=== PATIENT | female | born 1990 | race Caucasian/White ===

== ENCOUNTER 2018-08-08 00:06 | Emergency (ER) | payer OTHER ==
[~2018-08-08] VITALS: Ht 165.1 cm; Wt 77.3 kg
[2018-08-08] MEDS ORDERED: LISI-662 PO (01:10)
[2018-08-08 01:17] LABS: BASOPHILS % (AUTO) 0.8 % (0.0-2.0); EOSINOPHILS % (AUTO) 0.4 % (1.0-6.0); HEMATOCRIT 45.1 % (36-46); HEMOGLOBIN 15.3 g/dL (12.0-16.0); LYMPHOCYTES # (AUTO) 4.6 K/uL (1.0-4.8); LYMPHOCYTES % (AUTO) 42.3 % (22.0-44.0); MEAN CORPUSCULAR HEMOGLOBIN 31.7 pg (26.0-34.0); MEAN CORPUSCULAR VOLUME 93 fL (80-100); MONOCYTES # (AUTO) 0.3 K/uL (0.1-1.0); MONOCYTES % (AUTO) 2.9 % (2.0-9.0); NEUTROPHILS # (AUTO) 5.9 K/uL (1.8-7.7); NEUTROPHILS % (AUTO) 53.6 % (40.0-70.0); PLATELET COUNT (AUTO) 371 K/uL (150-450); RED BLOOD CELL COUNT(AUTO) 4.83 MIL/uL (4.00-5.20); RED CELL DISTRIBUTION WIDTH 12.4 % (11.5-14.5)
[2018-08-08 01:25] LABS: ANION GAP 9 mmol/L (8-16); CALCIUM, TOTAL 8.5 mg/dL (8.8-10.5); CARBON DIOXIDE 27 mmol/L (22-29); CHLORIDE 107 mmol/L (98-107); CREATININE 0.65 mg/dL (0.60-1.30); GLOMERULAR FILTR. RATE CALC > 60 mL/min (>60); GLUCOSE,RANDOM 108 mg/dL (70-110); POTASSIUM 3.5 mmol/L (3.5-5.1); SODIUM SERUM 143 mmol/L (136-145); UREA NITROGEN, BLOOD 5 mg/dL (7-18)
[2018-08-08 01:38] LABS: ALANINE AMINOTRANSFERASE 73 U/L (12-78); ALBUMIN 3.7 g/dL (3.4-5.0); ALKALINE PHOSPHATASE 79 U/L (46-116); ASPARTATE AMINOTRANSFERASE 37 U/L (15-37); BILIRUBIN,TOTAL 0.1 mg/dL (0.1-1.0); HCG,QUANTITATIVE < 1 mIU/mL (0-6); TOTAL PROTEIN, SERUM 7.8 g/dL (6.4-8.2)
[2018-08-08 02:35] LABS: AMPHET/METH SCREEN,URINE NEGATIVE (NEGATIVE); BARBITURATE SCREEN, URINE NEGATIVE (NEGATIVE); BENZODIAZEPINES SCREEN,URINE NEGATIVE (NEGATIVE); CANNABINOID SCREEN,URINE NEGATIVE (NEGATIVE); COCAINE SCREEN,URINE NEGATIVE (NEGATIVE); METHADONE SCREEN, URINE NEGATIVE (NEGATIVE); OPIATE SCREEN,URINE NEGATIVE (NEGATIVE)
[2018-08-08 02:48] LABS: PHENCYCLIDINE SCREEN,URINE NEGATIVE (NEGATIVE)
[2018-08-08 05:59] VITALS: BP 130/73
== END 2018-08-08 06:04 | disposition home or self-care (01) ==
LOC: EMS 00:06
DX: F10.129 Alcohol abuse with intoxication, unspecified (principal); I10 Essential (primary) hypertension; F17.210 Nicotine dependence, cigarettes, uncomplicated; Y90.8 Blood alcohol level of 240 mg/100 ml or more
CPT/HCPCS: 36415; 80053; 80307; 84702; 85025; 99285; G0480

== ENCOUNTER 2020-12-17 09:08 | Emergency (ER) | payer MEDICAID, OTHER ==
[~2020-12-17] VITALS: Ht 154.9 cm; Wt 77.3 kg
[~2020-12-17 09:08] MED LIST: LISI-894 PO
[2020-12-17 10:29] LABS: APPEARANCE,URINE CLEAR (CLEAR); BILIRUBIN,URINE NEGATIVE (NEGATIVE); GLUCOSE, URINE (UA) NEGATIVE (NEGATIVE); KETONES,URINE NEGATIVE (NEGATIVE); LEUKOCYTE ESTERASE ,URINE SMALL (NEGATIVE); NITRATE,URINE NEGATIVE (NEGATIVE); OCCULT BLOOD,URINE NEGATIVE (NEGATIVE); PH,URINE 7.5 (5.0-8.0); PROTEIN,URINE NEGATIVE (NEGATIVE); UROBILINOGEN,URINE 0.2 mg/dL (<=1.0)
[2020-12-17 10:39] LABS: BACTERIA,URINE None Seen /HPF (None Seen); RBC,URINE 0-2 /HPF (0-2); SQUAMOUS EPITHELIAL CELL,UR Moderate /LPF (None Seen)
[2020-12-17] MEDS ORDERED: CYCLOBENZAPRINE HCL 10 MG TABLET PO ONE (11:15)
[2020-12-17] MEDS ORDERED: KETOROLAC TROMETHAMINE 30 MG/ML VIAL IM ONE (11:15)
[2020-12-17 12:42] VITALS: BP 134/80
[2020-12-17] MEDS ORDERED: ONDANSETRON HCL 4 MG/2 ML VIAL IM ONE (13:15)
[2020-12-17] MEDS ORDERED: MORPHINE SULFATE 4 MG/ML SYRINGE IM ONE (13:15)
== END 2020-12-17 13:40 | disposition home or self-care (01) ==
LOC: EMS 09:08
DX: M51.26 Other intervertebral disc displacement, lumbar region (principal); M54.42 Lumbago with sciatica, left side; I10 Essential (primary) hypertension; F17.210 Nicotine dependence, cigarettes, uncomplicated; Z79.899 Other long term (current) drug therapy
CPT/HCPCS: 72131; 81001; 84703; 96372; 99284; J1885; J2270; J2405

== ENCOUNTER 2020-12-28 07:45 | Emergency (ER) | payer OTHER ==
[~2020-12-28] VITALS: Ht 162.6 cm; Wt 77.3 kg
[2020-12-28] MEDS ORDERED: LISI-894 PO (07:53)
[2020-12-28] MEDS ORDERED: KETOROLAC TROMETHAMINE 30 MG/ML VIAL IVP ONE (08:15)
[2020-12-28] MEDS ORDERED: MORPHINE SULFATE 4 MG/ML SYRINGE IVP ONE ×2 (08:15→09:30)
[2020-12-28] MEDS ORDERED: LIDOCAINE 5% TRANSDERMAL PATCH TD ONE (09:30)
[2020-12-28] MEDS ORDERED: ACETAMINOPHEN 500 MG TABLET PO ONE (10:15)
[2020-12-28] MEDS ORDERED: CYCLOBENZAPRINE HCL 10 MG TABLET PO ONE (10:15)
[2020-12-28 10:35] VITALS: BP 151/79
== END 2020-12-28 11:44 | disposition home or self-care (01) ==
LOC: EMS 07:49
DX: M51.26 Other intervertebral disc displacement, lumbar region (principal); I10 Essential (primary) hypertension; F17.210 Nicotine dependence, cigarettes, uncomplicated; Z88.5 Allergy status to narcotic agent; Z79.899 Other long term (current) drug therapy
CPT/HCPCS: 96374; 96375; 96376; 99284; J1885; J2270

== ENCOUNTER 2022-04-12 10:34 | Inpatient (IN) | payer MEDICAID, OTHER ==
[~2022-04-12] VITALS: Ht 162.6 cm; Wt 75.7 kg
[2022-04-12] MEDS ORDERED: HYDR-4870 PO (11:24)
[2022-04-12 11:47] LABS: BASOPHILS % (AUTO) 1.2 % (0.0-2.0); EOSINOPHILS % (AUTO) 1.5 % (1.0-6.0); HEMATOCRIT 34.9 % (36-46); HEMOGLOBIN 12.1 g/dL (12.0-16.0); LYMPHOCYTES % (AUTO) 28.9 % (22.0-44.0); MEAN CORPUSCULAR HEMOGLOBIN 35.5 pg (26.0-34.0); MEAN CORPUSCULAR HGB CONC 34.7 G/dL (31.0-37.0); MEAN CORPUSCULAR VOLUME 102 fL (80-100); MONOCYTES # (AUTO) 0.5 K/uL (0.1-1.0); MONOCYTES % (AUTO) 6.9 % (2.0-9.0); NEUTROPHILS # (AUTO) 4.2 K/uL (1.8-7.7); NEUTROPHILS % (AUTO) 61.5 % (40.0-70.0); PLATELET COUNT (AUTO) 305 K/uL (150-450); RED BLOOD CELL COUNT(AUTO) 3.41 MIL/uL (4.00-5.20); RED CELL DISTRIBUTION WIDTH 16.3 % (11.5-14.5)
[2022-04-12 11:58] LABS: ANION GAP 15 mmol/L (8-16); CALCIUM, TOTAL 8.8 mg/dL (8.8-10.5); CARBON DIOXIDE 19 mmol/L (22-29); CHLORIDE 102 mmol/L (98-107); GLOMERULAR FILTR. RATE CALC > 60 mL/min (>60); GLUCOSE,RANDOM 109 mg/dL (70-110); POTASSIUM 3.1 mmol/L (3.5-5.1); SODIUM SERUM 136 mmol/L (136-145); UREA NITROGEN, BLOOD 8 mg/dL (7-18)
[2022-04-12 12:05] LABS: ALANINE AMINOTRANSFERASE 58 U/L (12-78); ALBUMIN 3.8 g/dL (3.4-5.0); ALKALINE PHOSPHATASE 67 U/L (46-116); ASPARTATE AMINOTRANSFERASE 71 U/L (15-37); TOTAL PROTEIN, SERUM 7.3 g/dL (6.4-8.2)
[2022-04-12] MEDS ORDERED: QUEtiapine FUMARATE 100 MG TABLET PO ONE (12:15)
[2022-04-12 13:03] LABS: COVID AG,FIA SOURCE NASOPHARYNGEAL
[2022-04-12] MEDS ORDERED: THIAMINE 100 MG TABLET PO ONE (14:45)
[2022-04-12] MEDS ORDERED: POTASSIUM CHLORIDE 20 MEQ ER TABLET PO ONE (14:45)
[2022-04-12] MEDS ORDERED: LORazepam 2 MG TABLET PO ONE (14:45)
[2022-04-12] MEDS ORDERED: HALOPERIDOL LACTATE 5 MG/ML VIAL IM ONE (15:15)
[2022-04-12] MEDS ORDERED: DiphenhydrAMINE HCL 50 MG/ML VIAL IM ONE (15:15)
[2022-04-12 15:17] LABS: HCG,QUANTITATIVE < 1 mIU/mL (0-6); VALPROIC ACID 4 mcg/mL (50-100)
[2022-04-12] MEDS ORDERED: LORazepam 2 MG TABLET PO PRN (16:30)
[2022-04-12] MEDS ORDERED: HALOPERIDOL 5 MG TABLET PO PRN (16:30)
[2022-04-12] MEDS ORDERED: ChlordiazePOXIDE HCL 25 MG CAPSULE PO PRN (17:15)
[2022-04-13 00:21] LABS: AMPHET/METH SCREEN,URINE NEGATIVE (NEGATIVE); BARBITURATE SCREEN, URINE NEGATIVE (NEGATIVE); BENZODIAZEPINES SCREEN,URINE NEGATIVE (NEGATIVE); CANNABINOID SCREEN,URINE NEGATIVE (NEGATIVE); COCAINE SCREEN,URINE NEGATIVE (NEGATIVE); METHADONE SCREEN, URINE NEGATIVE (NEGATIVE); OPIATE SCREEN,URINE NEGATIVE (NEGATIVE)
[2022-04-13 00:23] LABS: PHENCYCLIDINE SCREEN,URINE NEGATIVE (NEGATIVE)
[2022-04-13] MEDS: ZOLPIDEM TARTRATE 10 MG TABLET PO PRN ×2 (00:33→20:30)
[2022-04-13 06:40] VITALS: BP 132/93
[2022-04-13] MEDS ORDERED: PNEUMOCOCCAL VACCINE POLYVALENT 0.5 ML VIAL [PPSV23] IM. ONE (06:45)
[2022-04-13 08:08] VITALS: BP 130/63
[2022-04-13] MEDS ORDERED: ONDANSETRON HCL 4 MG TABLET PO PRN (08:30)
[2022-04-13] MEDS ORDERED: DOCUSATE SODIUM 100 MG CAPSULE PO PRN (08:30)
[2022-04-13] MEDS ORDERED: GuaiFENesin/D-METHORPHAN [SUGAR-FREE] 200-20MG/10 ML SYRUP UDCUP PO PRN (08:30)
[2022-04-13] MEDS ORDERED: LOPERAMIDE HCL 2 MG CAPSULE PO PRN (08:30)
[2022-04-13] MEDS ORDERED: MAG HYDROX/AL HYDROX/SIMETH ES 30 ML SUSPENSION UDCUP PO PRN (08:30)
[2022-04-13] MEDS ORDERED: CloNIDine HCL 0.1 MG TABLET PO PRN (08:30)
[2022-04-13] MEDS ORDERED: MAGNESIUM HYDROXIDE SUSPENSION 30 ML UDCUP PO PRN (08:30)
[2022-04-13] MEDS ORDERED: NICOTINE 14 MG/24 HOUR PATCH TD PRN (08:30)
[2022-04-13] MEDS ORDERED: ALBUTEROL SULFATE HFA 90 MCG/PUFF 8 GM INHALER IH PRN (08:30)
[2022-04-13] MEDS ORDERED: ACETAMINOPHEN 325 MG TABLET PO PRN (08:30)
[2022-04-13] MEDS ORDERED: PETROLATUM,WHITE 28 GM JELLY TP PRN (08:30)
[2022-04-13] MEDS ORDERED: IBUPROFEN 400 MG TABLET PO PRN (08:30)
[2022-04-13] MEDS ORDERED: ChlordiazePOXIDE HCL 25 MG CAPSULE PO SCH (09:00)
[2022-04-13 11:29] VITALS: BP 156/105
[2022-04-13] MEDS: ChlordiazePOXIDE HCL 25 MG CAPSULE PO PRN ×2 (11:53→16:09)
[2022-04-13] MEDS: LISINOPRIL 20 MG TABLET PO SCH (12:28)
[2022-04-13] MEDS: RisperiDONE 1 MG TABLET PO SCH (16:09)
[2022-04-13 16:30] VITALS: BP 172/92
[2022-04-13 17:30] VITALS: BP 152/88
[2022-04-14 05:23] VITALS: BP 135/86
[2022-04-14] MEDS: LISINOPRIL 20 MG TABLET PO SCH (08:16)
[2022-04-14] MEDS: RisperiDONE 1 MG TABLET PO SCH ×2 (08:16→16:40)
[2022-04-14 08:36] VITALS: BP 143/89
[2022-04-14] MEDS: ChlordiazePOXIDE HCL 25 MG CAPSULE PO PRN ×3 (15:47→20:28)
[2022-04-14 16:27] VITALS: BP 138/100
[2022-04-14 18:29] VITALS: BP 124/88
[2022-04-14] MEDS: ZOLPIDEM TARTRATE 10 MG TABLET PO PRN (20:28)
[2022-04-15 05:34] VITALS: BP 145/92
[2022-04-15] MEDS: ChlordiazePOXIDE HCL 25 MG CAPSULE PO PRN (06:43)
[2022-04-15] MEDS ORDERED: ChlordiazePOXIDE HCL 10 MG CAPSULE PO PRN (07:00)
[2022-04-15] MEDS ORDERED: POTASSIUM CHLORIDE 20 MEQ ER TABLET PO ONE (08:00)
[2022-04-15] MEDS: RisperiDONE 1 MG TABLET PO SCH (08:09)
[2022-04-15] MEDS: LISINOPRIL 20 MG TABLET PO SCH (08:09)
[2022-04-15 08:17] VITALS: BP 137/101
[2022-04-15] MEDS ORDERED: ChlordiazePOXIDE HCL 10 MG CAPSULE PO SCH (09:00)
[2022-04-15] MEDS ORDERED: DISULFIRAM 250 MG TABLET PO SCH (10:45)
[2022-04-15] MEDS ORDERED: DISU250T8 PO (12:58)
[2022-04-15] MEDS ORDERED: RISP1TAB98 PO (12:58)
[2022-04-15 14:27] VITALS: BP 135/93
[2022-04-16] MEDS ORDERED: ChlordiazePOXIDE HCL 10 MG CAPSULE PO PRN (07:00)
== END 2022-04-15 15:07 | disposition home or self-care (01) | DRG 750 ==
LOC: EMS 10:36 → B3A 04-13 03:02
PROVIDERS: ADMIT Psychiatry & Neurology Child & Adolescent Psychiatry; ATTEND Psychiatry & Neurology Child & Adolescent Psychiatry
PROC: 3E0234Z Introduction of Serum, Toxoid and Vaccine into Muscle, Percutaneous Approach (ICD-10-PCS; principal; 2022-04-13)
DX: F25.0 Schizoaffective disorder, bipolar type (principal); D64.9 Anemia, unspecified; Z20.822 Contact with and (suspected) exposure to COVID-19; E87.6 Hypokalemia; F10.129 Alcohol abuse with intoxication, unspecified; F19.10 Other psychoactive substance abuse, uncomplicated; F31.9 Bipolar disorder, unspecified; I10 Essential (primary) hypertension; Y90.5 Blood alcohol level of 100-119 mg/100 ml; F17.210 Nicotine dependence, cigarettes, uncomplicated; Z23 Encounter for immunization; Z88.5 Allergy status to narcotic agent; Z79.899 Other long term (current) drug therapy; Z71.41 Alcohol abuse counseling and surveillance of alcoholic
CPT/HCPCS: 70450; 80053; 80164; 84132; 84443; 84702; 85025; 90732; 99285; G0480; J1200; J1630; J3535

== ENCOUNTER 2022-07-04 12:06 | Inpatient (IN) | payer OTHER ==
[~2022-07-04] VITALS: Ht 162.6 cm; Wt 78.9 kg
[2022-07-04] MEDS ORDERED: HYDR25TA2 PO (12:19)
[2022-07-04] MEDS ORDERED: LISI-894 PO (12:19)
[2022-07-04] MEDS ORDERED: ONDANSETRON HCL 4 MG/2 ML VIAL IVP ONE (12:45)
[2022-07-04] MEDS ORDERED: SODIUM CHLORIDE 0.9% 1,000 ML IV ONE (12:45)
[2022-07-04 12:46] LABS: BASOPHILS % (AUTO) 0.6 % (0.0-2.0); EOSINOPHILS % (AUTO) 0.2 % (1.0-6.0); HEMATOCRIT 35.6 % (36-46); LYMPHOCYTES % (AUTO) 21.8 % (22.0-44.0); MEAN CORPUSCULAR HGB CONC 33.7 G/dL (31.0-37.0); MEAN CORPUSCULAR VOLUME 95 fL (80-100); MONOCYTES # (AUTO) 0.5 K/uL (0.1-1.0); MONOCYTES % (AUTO) 11.1 % (2.0-9.0); NEUTROPHILS # (AUTO) 3.1 K/uL (1.8-7.7); NEUTROPHILS % (AUTO) 66.3 % (40.0-70.0); PLATELET COUNT (AUTO) 308 K/uL (150-450); RED BLOOD CELL COUNT(AUTO) 3.75 MIL/uL (4.00-5.20); RED CELL DISTRIBUTION WIDTH 18.4 % (11.5-14.5)
[2022-07-04 12:57] LABS: ANION GAP 13 mmol/L (8-16); CALCIUM, TOTAL 7.6 mg/dL (8.8-10.5); CARBON DIOXIDE 24 mmol/L (22-29); CHLORIDE 101 mmol/L (98-107); CREATININE 0.49 mg/dL (0.60-1.30); GLUCOSE,RANDOM 99 mg/dL (70-110); POTASSIUM 3.2 mmol/L (3.5-5.1); SODIUM SERUM 138 mmol/L (136-145); UREA NITROGEN, BLOOD 15 mg/dL (7-18)
[2022-07-04 12:58] LABS: GLOMERULAR FILTR. RATE CALC > 60 mL/min (>60)
[2022-07-04] MEDS ORDERED: LORazepam 2 MG/ML VIAL IVP ONE (13:00)
[2022-07-04 13:10] LABS: ALANINE AMINOTRANSFERASE 130 U/L (12-78); ALBUMIN 3.4 g/dL (3.4-5.0); ALKALINE PHOSPHATASE 99 U/L (46-116); ASPARTATE AMINOTRANSFERASE 114 U/L (15-37); BILIRUBIN,TOTAL 0.3 mg/dL (0.1-1.0); HCG,QUANTITATIVE < 1 mIU/mL (0-6); TOTAL PROTEIN, SERUM 6.9 g/dL (6.4-8.2)
[2022-07-04] MEDS ORDERED: MAGNESIUM SULFATE 2 GM, MVI, ADULT NO.1 WITH VIT K 10 ML, THIAMINE 100 MG, FOLIC ACID 1... IV ONE ×10 (14:00→16:15)
[2022-07-04] MEDS ORDERED: POTASSIUM CHLORIDE 20 MEQ ER TABLET PO ONE (14:00)
[2022-07-04] MEDS ORDERED: ONDANSETRON HCL 4 MG/2 ML VIAL IVP PRN (15:00)
[2022-07-04] MEDS ORDERED: MAGNESIUM HYDROXIDE SUSPENSION 30 ML UDCUP PO PRN (15:00)
[2022-07-04] MEDS ORDERED: BISACODYL 10 MG RECTAL RECTAL SUPPOSITORY PR PRN (15:00)
[2022-07-04 15:13] LABS: AMPHET/METH SCREEN,URINE NEGATIVE (NEGATIVE); BARBITURATE SCREEN, URINE NEGATIVE (NEGATIVE); BENZODIAZEPINES SCREEN,URINE POSITIVE (NEGATIVE); CANNABINOID SCREEN,URINE NEGATIVE (NEGATIVE); COCAINE SCREEN,URINE NEGATIVE (NEGATIVE); METHADONE SCREEN, URINE NEGATIVE (NEGATIVE); OPIATE SCREEN,URINE NEGATIVE (NEGATIVE); PHENCYCLIDINE SCREEN,URINE NEGATIVE (NEGATIVE)
[2022-07-04 16:07] LABS: COVID AG,FIA SOURCE NASAL SWAB
[2022-07-04] MEDS: ChlordiazePOXIDE HCL 25 MG CAPSULE PO SCH ×2 (17:10→23:19)
[2022-07-04] MEDS: HEPARIN SODIUM,PORCINE 5,000 UNITS/ML VIAL SQ SCH ×2 (17:10→23:21)
[2022-07-04 20:30] VITALS: BP 184/117
[2022-07-04] MEDS: DOCUSATE SODIUM 100 MG CAPSULE PO SCH (20:47)
[2022-07-04] MEDS ORDERED: CloNIDine HCL 0.1 MG TABLET PO PRN (21:45)
[2022-07-05] VITALS (7 sets, daily range): BP systolic 114–164; BP diastolic 79–107
[2022-07-05 06:38] LABS: EOSINOPHILS % (AUTO) 1.1 % (1.0-6.0); HEMATOCRIT 34.1 % (36-46); HEMOGLOBIN 11.5 g/dL (12.0-16.0); LYMPHOCYTES # (AUTO) 2.3 K/uL (1.0-4.8); LYMPHOCYTES % (AUTO) 36.3 % (22.0-44.0); MEAN CORPUSCULAR HEMOGLOBIN 32.1 pg (26.0-34.0); MEAN CORPUSCULAR HGB CONC 33.7 G/dL (31.0-37.0); MEAN CORPUSCULAR VOLUME 95 fL (80-100); MONOCYTES # (AUTO) 0.7 K/uL (0.1-1.0); NEUTROPHILS # (AUTO) 3.2 K/uL (1.8-7.7); NEUTROPHILS % (AUTO) 50.6 % (40.0-70.0); PLATELET COUNT (AUTO) 280 K/uL (150-450); RED BLOOD CELL COUNT(AUTO) 3.58 MIL/uL (4.00-5.20); RED CELL DISTRIBUTION WIDTH 18.8 % (11.5-14.5)
[2022-07-05 07:10] LABS: ANION GAP 8 mmol/L (8-16); CALCIUM, TOTAL 7.4 mg/dL (8.8-10.5); CARBON DIOXIDE 27 mmol/L (22-29); CHLORIDE 102 mmol/L (98-107); CREATININE 0.58 mg/dL (0.60-1.30); GLUCOSE,RANDOM 92 mg/dL (70-110); POTASSIUM 3.5 mmol/L (3.5-5.1); SODIUM SERUM 137 mmol/L (136-145); UREA NITROGEN, BLOOD 6 mg/dL (7-18)
[2022-07-05 07:12] LABS: GLOMERULAR FILTR. RATE CALC > 60 mL/min (>60)
[2022-07-05] MEDS: PANTOPRAZOLE SODIUM 40 MG DR TABLET PO SCH (08:22)
[2022-07-05] MEDS: LISINOPRIL 20 MG TABLET PO SCH (08:22)
[2022-07-05] MEDS: DOCUSATE SODIUM 100 MG CAPSULE PO SCH ×2 (08:23→21:15)
[2022-07-05] MEDS: HEPARIN SODIUM,PORCINE 5,000 UNITS/ML VIAL SQ SCH ×3 (08:23→23:05)
[2022-07-05] MEDS: HYDROCHLOROTHIAZIDE 25 MG TABLET PO SCH (08:23)
[2022-07-05] MEDS: ChlordiazePOXIDE HCL 25 MG CAPSULE PO SCH ×2 (08:24→15:36)
[2022-07-05] MEDS ORDERED: MAGNESIUM SULFATE 2 GM, MVI, ADULT NO.1 WITH VIT K 10 ML, THIAMINE 100 MG, FOLIC ACID 1... IV ONE ×5 (11:30)
[2022-07-05] MEDS: ACETAMINOPHEN 325 MG TABLET PO PRN (15:36)
[2022-07-05] MEDS ORDERED: RisperiDONE 1 MG TABLET PO SCH (21:00)
[2022-07-05] MEDS: ZOLPIDEM TARTRATE 5 MG TABLET PO PRN (21:15)
[2022-07-05] MEDS: ChlordiazePOXIDE HCL 25 MG CAPSULE PO PRN ×2 (21:16→23:04)
[2022-07-06] VITALS (10 sets, daily range): BP systolic 126–161; BP diastolic 61–112
[2022-07-06] MEDS: ChlordiazePOXIDE HCL 25 MG CAPSULE PO PRN ×4 (00:52→23:42)
[2022-07-06 07:11] LABS: BASOPHILS % (AUTO) 0.8 % (0.0-2.0); EOSINOPHILS % (AUTO) 1.2 % (1.0-6.0); HEMATOCRIT 35.3 % (36-46); LYMPHOCYTES # (AUTO) 2.4 K/uL (1.0-4.8); LYMPHOCYTES % (AUTO) 31.9 % (22.0-44.0); MEAN CORPUSCULAR HEMOGLOBIN 32.1 pg (26.0-34.0); MEAN CORPUSCULAR HGB CONC 33.8 G/dL (31.0-37.0); MEAN CORPUSCULAR VOLUME 95 fL (80-100); MONOCYTES # (AUTO) 0.6 K/uL (0.1-1.0); MONOCYTES % (AUTO) 8.5 % (2.0-9.0); NEUTROPHILS # (AUTO) 4.4 K/uL (1.8-7.7); NEUTROPHILS % (AUTO) 57.6 % (40.0-70.0); PLATELET COUNT (AUTO) 258 K/uL (150-450); RED BLOOD CELL COUNT(AUTO) 3.73 MIL/uL (4.00-5.20); RED CELL DISTRIBUTION WIDTH 18.5 % (11.5-14.5)
[2022-07-06 07:37] LABS: ANION GAP 11 mmol/L (8-16); CALCIUM, TOTAL 8.5 mg/dL (8.8-10.5); CARBON DIOXIDE 25 mmol/L (22-29); CHLORIDE 101 mmol/L (98-107); CREATININE 0.54 mg/dL (0.60-1.30); GLOMERULAR FILTR. RATE CALC > 60 mL/min (>60); GLUCOSE,RANDOM 91 mg/dL (70-110); POTASSIUM 3.2 mmol/L (3.5-5.1); SODIUM SERUM 137 mmol/L (136-145); UREA NITROGEN, BLOOD 10 mg/dL (7-18)
[2022-07-06] MEDS: PANTOPRAZOLE SODIUM 40 MG DR TABLET PO SCH (08:29)
[2022-07-06] MEDS: LISINOPRIL 20 MG TABLET PO SCH (08:29)
[2022-07-06] MEDS: DOCUSATE SODIUM 100 MG CAPSULE PO SCH ×2 (08:30→20:42)
[2022-07-06] MEDS: SERTRALINE HCL 50 MG TABLET PO SCH (08:30)
[2022-07-06] MEDS: HYDROCHLOROTHIAZIDE 25 MG TABLET PO SCH (08:30)
[2022-07-06] MEDS: ChlordiazePOXIDE HCL 25 MG CAPSULE PO SCH ×4 (08:30→20:43)
[2022-07-06] MEDS: HEPARIN SODIUM,PORCINE 5,000 UNITS/ML VIAL SQ SCH ×3 (08:39→23:42)
[2022-07-06] MEDS ORDERED: POTASSIUM CHLORIDE 20 MEQ ER TABLET PO PRN (18:45)
[2022-07-06] MEDS ORDERED: POTASSIUM CHL 10 MEQ/WATER 50 ML IV PRN ×2 (18:45)
[2022-07-06] MEDS ORDERED: POTASSIUM CHLORIDE 10 MEQ ER TABLET PO PRN (18:45)
[2022-07-06] MEDS: ZOLPIDEM TARTRATE 5 MG TABLET PO PRN (20:43)
[2022-07-06] MEDS: FOLIC ACID 1 MG TABLET PO SCH (20:46)
[2022-07-07] VITALS (7 sets, daily range): BP systolic 123–156; BP diastolic 93–108
[2022-07-07] MEDS: ChlordiazePOXIDE HCL 25 MG CAPSULE PO PRN ×2 (03:47→23:26)
[2022-07-07 06:48] LABS: BASOPHILS % (AUTO) 0.9 % (0.0-2.0); HEMATOCRIT 34.2 % (36-46); HEMOGLOBIN 11.5 g/dL (12.0-16.0); LYMPHOCYTES # (AUTO) 2.5 K/uL (1.0-4.8); LYMPHOCYTES % (AUTO) 25.9 % (22.0-44.0); MEAN CORPUSCULAR HGB CONC 33.8 G/dL (31.0-37.0); MEAN CORPUSCULAR VOLUME 95 fL (80-100); MONOCYTES # (AUTO) 0.5 K/uL (0.1-1.0); MONOCYTES % (AUTO) 5.5 % (2.0-9.0); NEUTROPHILS # (AUTO) 6.3 K/uL (1.8-7.7); NEUTROPHILS % (AUTO) 66.7 % (40.0-70.0); PLATELET COUNT (AUTO) 262 K/uL (150-450); RED CELL DISTRIBUTION WIDTH 18.5 % (11.5-14.5)
[2022-07-07] MEDS: ChlordiazePOXIDE HCL 25 MG CAPSULE PO SCH ×4 (06:48→20:14)
[2022-07-07 07:52] LABS: ANION GAP 8 mmol/L (8-16); CARBON DIOXIDE 26 mmol/L (22-29); CHLORIDE 101 mmol/L (98-107); CREATININE 0.57 mg/dL (0.60-1.30); GLUCOSE,RANDOM 89 mg/dL (70-110); POTASSIUM 3.7 mmol/L (3.5-5.1); SODIUM SERUM 135 mmol/L (136-145); UREA NITROGEN, BLOOD 19 mg/dL (7-18)
[2022-07-07 07:53] LABS: GLOMERULAR FILTR. RATE CALC > 60 mL/min (>60)
[2022-07-07] MEDS: LISINOPRIL 20 MG TABLET PO SCH (08:43)
[2022-07-07] MEDS: THIAMINE 100 MG TABLET PO SCH (08:43)
[2022-07-07] MEDS: HEPARIN SODIUM,PORCINE 5,000 UNITS/ML VIAL SQ SCH ×3 (08:43→23:30)
[2022-07-07] MEDS: MECLIZINE HCL 25 MG TABLET PO PRN (08:44)
[2022-07-07] MEDS: DOCUSATE SODIUM 100 MG CAPSULE PO SCH ×2 (08:44→20:15)
[2022-07-07] MEDS: PANTOPRAZOLE SODIUM 40 MG DR TABLET PO SCH (08:44)
[2022-07-07] MEDS: SERTRALINE HCL 50 MG TABLET PO SCH (08:44)
[2022-07-07] MEDS: HYDROCHLOROTHIAZIDE 25 MG TABLET PO SCH (08:44)
[2022-07-07] MEDS: FOLIC ACID 1 MG TABLET PO SCH ×2 (08:44→22:34)
[2022-07-07] MEDS ORDERED: PROP20TA96 PO (12:41)
[2022-07-07] MEDS ORDERED: CETI10TA58 PO (12:41)
[2022-07-07] MEDS: LORazepam 2 MG/ML VIAL IVP PRN (20:15)
[2022-07-08 00:24] VITALS: BP 134/91
[2022-07-08] MEDS: ACETAMINOPHEN 325 MG TABLET PO PRN ×2 (03:30→20:07)
[2022-07-08] MEDS: ChlordiazePOXIDE HCL 25 MG CAPSULE PO PRN (03:31)
[2022-07-08 04:31] VITALS: BP 116/83
[2022-07-08] MEDS ORDERED: ChlordiazePOXIDE HCL 10 MG CAPSULE PO PRN (07:00)
[2022-07-08 07:18] VITALS: BP 121/85
[2022-07-08] MEDS: HYDROCHLOROTHIAZIDE 25 MG TABLET PO SCH (10:23)
[2022-07-08] MEDS: LISINOPRIL 20 MG TABLET PO SCH (10:23)
[2022-07-08] MEDS: ChlordiazePOXIDE HCL 10 MG CAPSULE PO SCH ×4 (10:24→20:05)
[2022-07-08] MEDS: THIAMINE 100 MG TABLET PO SCH (10:24)
[2022-07-08] MEDS: FOLIC ACID 1 MG TABLET PO SCH ×2 (10:24→20:06)
[2022-07-08] MEDS: SERTRALINE HCL 50 MG TABLET PO SCH (10:24)
[2022-07-08] MEDS: HEPARIN SODIUM,PORCINE 5,000 UNITS/ML VIAL SQ SCH ×2 (10:25→16:10)
[2022-07-08] MEDS: DOCUSATE SODIUM 100 MG CAPSULE PO SCH ×2 (10:25→20:06)
[2022-07-08] MEDS: PANTOPRAZOLE SODIUM 40 MG DR TABLET PO SCH (10:25)
[2022-07-08] MEDS: LORazepam 2 MG/ML VIAL IVP PRN ×3 (10:25→23:55)
[2022-07-08 11:00] VITALS: BP 125/86
[2022-07-08 15:30] VITALS: BP 114/82
[2022-07-08 19:34] VITALS: BP 125/90
[2022-07-08] MEDS: ZOLPIDEM TARTRATE 5 MG TABLET PO PRN (20:06)
[2022-07-08] MEDS: MECLIZINE HCL 25 MG TABLET PO PRN (22:20)
[2022-07-09 00:07] VITALS: BP 116/70
[2022-07-09 04:33] VITALS: BP 118/76
[2022-07-09] MEDS ORDERED: ChlordiazePOXIDE HCL 10 MG CAPSULE PO PRN (07:00)
[2022-07-09 07:22] VITALS: BP 118/71
[2022-07-09 07:31] VITALS: BP 110/74
[2022-07-09] MEDS: HEPARIN SODIUM,PORCINE 5,000 UNITS/ML VIAL SQ SCH ×3 (08:00→16:00)
[2022-07-09] MEDS: THIAMINE 100 MG TABLET PO SCH (08:37)
[2022-07-09] MEDS: LISINOPRIL 20 MG TABLET PO SCH (08:37)
[2022-07-09] MEDS: HYDROCHLOROTHIAZIDE 25 MG TABLET PO SCH (08:37)
[2022-07-09] MEDS: PANTOPRAZOLE SODIUM 40 MG DR TABLET PO SCH (08:37)
[2022-07-09] MEDS: FOLIC ACID 1 MG TABLET PO SCH (08:37)
[2022-07-09] MEDS: SERTRALINE HCL 50 MG TABLET PO SCH (08:37)
[2022-07-09] MEDS: LORazepam 2 MG/ML VIAL IVP PRN (08:37)
[2022-07-09] MEDS: DOCUSATE SODIUM 100 MG CAPSULE PO SCH (08:45)
[2022-07-09 11:14] VITALS: BP 98/61
[2022-07-09] MEDS ORDERED: PROP20TA96 PO (12:04)
[2022-07-09] MEDS ORDERED: SERT-439 PO (12:04)
[2022-07-09] MEDS ORDERED: CHLO10CA7 PO (12:04)
[2022-07-09] MEDS ORDERED: HYDR25TA2 PO (12:04)
[2022-07-09] MEDS ORDERED: LISI-894 PO (12:04)
[2022-07-09 15:11] VITALS: BP 101/65
== END 2022-07-09 17:10 | disposition home or self-care (01) | DRG 199 ==
LOC: EMS 12:06 → 5N 15:45
PROVIDERS: ADMIT Internal Medicine; ATTEND Internal Medicine
DX: I10 Essential (primary) hypertension (principal); F33.2 Major depressive disorder, recurrent severe without psychotic features; R65.10 Systemic inflammatory response syndrome (SIRS) of non-infectious origin without acute organ dysfunction; F10.239 Alcohol dependence with withdrawal, unspecified; E11.9 Type 2 diabetes mellitus without complications; E87.6 Hypokalemia; Z20.822 Contact with and (suspected) exposure to COVID-19; F17.210 Nicotine dependence, cigarettes, uncomplicated; Y90.1 Blood alcohol level of 20-39 mg/100 ml; F41.9 Anxiety disorder, unspecified; R00.0 Tachycardia, unspecified; R11.2 Nausea with vomiting, unspecified; Z79.899 Other long term (current) drug therapy; Z88.5 Allergy status to narcotic agent; Z71.6 Tobacco abuse counseling
CPT/HCPCS: 80048; 80053; 84132; 84702; 85025; 87081; 99285; G0480; J1644; J2060; J2405; J3411; J3475; J3490; J7030

== ENCOUNTER 2022-09-04 18:57 | Emergency (ER) | payer OTHER ==
[~2022-09-04] VITALS: Ht 162.6 cm; Wt 81.8 kg
[~2022-09-04 18:57] MED LIST changes: +CETI10TA58 PO; +CHLO10CA7 PO; +HYDR25TA2 PO; +PROP20TA96 PO; +SERT-439 PO
[2022-09-04] MEDS ORDERED: LORazepam 2 MG/ML VIAL IVP ONE (19:30)
[2022-09-04] MEDS ORDERED: SODIUM CHLORIDE 0.9% 1,000 ML IV ONE (19:30)
[2022-09-04] MEDS ORDERED: ONDANSETRON HCL 4 MG/2 ML VIAL IVP ONE (19:30)
[2022-09-04 19:37] LABS: EOSINOPHILS % (AUTO) 0.3 % (1.0-6.0); HEMOGLOBIN 13.1 g/dL (12.0-16.0); LYMPHOCYTES # (AUTO) 3.2 K/uL (1.0-4.8); LYMPHOCYTES % (AUTO) 48.8 % (22.0-44.0); MEAN CORPUSCULAR HGB CONC 33.7 G/dL (31.0-37.0); MEAN CORPUSCULAR VOLUME 92 fL (80-100); MONOCYTES # (AUTO) 0.3 K/uL (0.1-1.0); MONOCYTES % (AUTO) 4.7 % (2.0-9.0); NEUTROPHILS % (AUTO) 45.2 % (40.0-70.0); PLATELET COUNT (AUTO) 309 K/uL (150-450); RED BLOOD CELL COUNT(AUTO) 4.23 MIL/uL (4.00-5.20); RED CELL DISTRIBUTION WIDTH 14.6 % (11.5-14.5)
[2022-09-04 19:41] LABS: GLUCOMETER DEV NAME(LOC) ERT.5; GLUCOSE,POINT OF CARE 131 MG/DL (70-110)
[2022-09-04 19:47] LABS: ANION GAP 8 mmol/L (8-16); CALCIUM, TOTAL 8.3 mg/dL (8.8-10.5); CARBON DIOXIDE 27 mmol/L (22-29); CHLORIDE 105 mmol/L (98-107); CREATININE 0.88 mg/dL (0.60-1.30); GLUCOSE,RANDOM 128 mg/dL (70-110); POTASSIUM 3.9 mmol/L (3.5-5.1); SODIUM SERUM 140 mmol/L (136-145); UREA NITROGEN, BLOOD 19 mg/dL (7-18)
[2022-09-04 19:48] LABS: GLOMERULAR FILTR. RATE CALC > 60 mL/min (>60)
[2022-09-04 19:58] LABS: ALANINE AMINOTRANSFERASE 26 U/L (12-78); ALBUMIN 3.9 g/dL (3.4-5.0); ALKALINE PHOSPHATASE 62 U/L (46-116); ASPARTATE AMINOTRANSFERASE 23 U/L (15-37); BILIRUBIN,TOTAL 0.2 mg/dL (0.1-1.0); HCG,QUANTITATIVE < 1 mIU/mL (0-6); LIPASE 95 U/L (73-393); TOTAL PROTEIN, SERUM 7.6 g/dL (6.4-8.2)
[2022-09-04 21:00] LABS: APPEARANCE,URINE CLEAR (CLEAR); BILIRUBIN,URINE NEGATIVE (NEGATIVE); GLUCOSE, URINE (UA) NEGATIVE (NEGATIVE); KETONES,URINE TRACE mg/dL (NEGATIVE); LEUKOCYTE ESTERASE ,URINE NEGATIVE (NEGATIVE); NITRATE,URINE NEGATIVE (NEGATIVE); OCCULT BLOOD,URINE NEGATIVE (NEGATIVE); PH,URINE 5.5 (5.0-8.0); PROTEIN,URINE NEGATIVE (NEGATIVE); SPECIFIC GRAVITIY, URINE 1.024 (1.003-1.030); UROBILINOGEN,URINE <=1.0 mg/dL (<=1.0)
[2022-09-04 21:05] LABS: AMPHET/METH SCREEN,URINE NEGATIVE (NEGATIVE); BARBITURATE SCREEN, URINE NEGATIVE (NEGATIVE); BENZODIAZEPINES SCREEN,URINE NEGATIVE (NEGATIVE); CANNABINOID SCREEN,URINE NEGATIVE (NEGATIVE); COCAINE SCREEN,URINE NEGATIVE (NEGATIVE); METHADONE SCREEN, URINE NEGATIVE (NEGATIVE); OPIATE SCREEN,URINE NEGATIVE (NEGATIVE)
[2022-09-04 21:08] LABS: PHENCYCLIDINE SCREEN,URINE NEGATIVE (NEGATIVE)
[2022-09-04 21:56] VITALS: BP 106/42
== END 2022-09-04 22:30 | disposition home or self-care (01) ==
LOC: EMS 18:57
DX: F25.0 Schizoaffective disorder, bipolar type (principal); F10.20 Alcohol dependence, uncomplicated; F41.9 Anxiety disorder, unspecified; R11.0 Nausea; I10 Essential (primary) hypertension; F17.210 Nicotine dependence, cigarettes, uncomplicated; Z79.899 Other long term (current) drug therapy; Y90.6 Blood alcohol level of 120-199 mg/100 ml
CPT/HCPCS: 99285; 96374; 96361; 96375; 80053; 81003; 82962; 83690; 83735; 84702; 85025; 36415; 73110; 73130; 80307; G0480; J2060; J2405; J7030

== ENCOUNTER 2023-09-02 13:35 | Emergency (ER) | payer OTHER ==
[~2023-09-02] VITALS: Ht 162.6 cm; Wt 77.3 kg
[~2023-09-02 13:35] MED LIST changes: +AMLO-258 PO; -CETI10TA58 PO; +GABA-1181 PO; +HYDR-4808 PO; +HYDR25TA PO; -HYDR25TA2 PO; -PROP20TA96 PO; -SERT-439 PO; +TRAZ-252 PO
[2023-09-02 14:40] LABS: BASOPHILS % (AUTO) 1.2 % (0.0-2.0); EOSINOPHILS % (AUTO) 0.1 % (1.0-6.0); HEMOGLOBIN 12.4 g/dL (12.0-16.0); LYMPHOCYTES # (AUTO) 1.9 K/uL (1.0-4.8); MEAN CORPUSCULAR HEMOGLOBIN 29.3 pg (26.0-34.0); MEAN CORPUSCULAR HGB CONC 33.5 G/dL (31.0-37.0); MEAN CORPUSCULAR VOLUME 88 fL (80-100); MONOCYTES # (AUTO) 0.5 K/uL (0.1-1.0); MONOCYTES % (AUTO) 5.2 % (2.0-9.0); NEUTROPHILS # (AUTO) 6.2 K/uL (1.8-7.7); NEUTROPHILS % (AUTO) 71.5 % (40.0-70.0); PLATELET COUNT (AUTO) 295 K/uL (150-450); RED BLOOD CELL COUNT(AUTO) 4.23 MIL/uL (4.00-5.20); RED CELL DISTRIBUTION WIDTH 15.2 % (11.5-14.5); WHITE BLOOD COUNT (AUTO) 8.6 K/uL (4.5-11.0)
[2023-09-02] MEDS ORDERED: PROP20TA96 PO (14:40)
[2023-09-02] MEDS ORDERED: METOCLOPRAMIDE HCL 5 MG/ML 2 ML VIAL IVP ONE (14:45)
[2023-09-02] MEDS ORDERED: SODIUM CHLORIDE 0.9% 1,000 ML IV ONE (14:45)
[2023-09-02] MEDS ORDERED: ACETAMINOPHEN 500 MG TABLET PO ONE (14:45)
[2023-09-02] MEDS ORDERED: ONDANSETRON HCL 4 MG/2 ML VIAL IVP ONE (14:45)
[2023-09-02] MEDS ORDERED: DiphenhydrAMINE HCL 50 MG/ML VIAL IVP ONE (14:45)
[2023-09-02 14:46] LABS: ANION GAP 14 mmol/L (8-16); CARBON DIOXIDE 25 mmol/L (22-29); CHLORIDE 96 mmol/L (98-107); GLUCOSE,RANDOM 92 mg/dL (70-110); POTASSIUM 3.2 mmol/L (3.5-5.1); SODIUM SERUM 135 mmol/L (136-145); UREA NITROGEN, BLOOD 12 mg/dL (7-18)
[2023-09-02 14:47] LABS: CALCIUM, TOTAL 9.3 mg/dL (8.8-10.5); CREATININE 0.61 mg/dL (0.60-1.30); GLOMERULAR FILTR. RATE CALC > 60 mL/min (>60)
[2023-09-02 14:55] LABS: TROPONIN I-HIGH SENSITIVITY Less Than 4 ng/L (<51)
[2023-09-02 14:56] LABS: B-TYPE NATRIURETIC PEPTIDE 18 pg/mL (0-100)
[2023-09-02 14:58] LABS: ALANINE AMINOTRANSFERASE 22 U/L (12-78); ALBUMIN 3.9 g/dL (3.4-5.0); ALKALINE PHOSPHATASE 64 U/L (46-116); ASPARTATE AMINOTRANSFERASE 23 U/L (15-37); BILIRUBIN,TOTAL 0.6 mg/dL (0.1-1.0); CREATINE KINASE, TOTAL ONLY 72 U/L (26-192); HCG,QUANTITATIVE < 1 mIU/mL (0-6); TOTAL PROTEIN, SERUM 8.1 g/dL (6.4-8.2)
[2023-09-02] MEDS ORDERED: POTASSIUM CHLORIDE 20 MEQ ER TABLET PO ONE (15:00)
[2023-09-02] MEDS ORDERED: MORPHINE SULFATE 2 MG/ML SYRINGE IVP ONE (16:45)
[2023-09-02] MEDS ORDERED: ONDA-104 PO (16:50)
[2023-09-02] MEDS ORDERED: IBUP-1492 PO (16:50)
[2023-09-02] MEDS ORDERED: ACET-3385 PO (16:50)
[2023-09-02 17:02] VITALS: BP 131/82; PULSE 67; RESP 18; TEMP 98.3
== END 2023-09-02 17:34 | disposition home or self-care (01) ==
LOC: EMS 14:00
DX: R07.9 Chest pain, unspecified (principal); R51.9 Headache, unspecified; I10 Essential (primary) hypertension; F41.9 Anxiety disorder, unspecified; F20.9 Schizophrenia, unspecified; R56.9 Unspecified convulsions; Z88.5 Allergy status to narcotic agent
CPT/HCPCS: 99285; 96374; 96375; 70450; 71045; 96361; 80053; 82550; 83880; 84484; 84702; 85025; 93005; J1200; J2765; J2270; J2405; J7030; 36415-L1; 36415-TC

== ENCOUNTER 2024-10-01 16:55 | Emergency (ER) | payer OTHER ==
[~2024-10-01] VITALS: Ht 167.6 cm; Wt 75.0 kg
[~2024-10-01 16:55] MED LIST changes: +ACET-3385 PO; -AMLO-258 PO; -CHLO10CA7 PO; -GABA-1181 PO; -HYDR-4808 PO; +IBUP-1492 PO; +ONDA-104 PO; +PROP20TA96 PO; -TRAZ-252 PO
[2024-10-01] MEDS ORDERED: GABA-1181 PO (17:31)
[2024-10-01] MEDS ORDERED: AMLO5TAB66 PO (17:31)
[2024-10-01] MEDS ORDERED: LISI40TA9 PO (17:31)
[2024-10-01 17:53] VITALS: TEMP 98.2
[2024-10-01 17:58] LABS: BASOPHILS % (AUTO) 0.8 % (0.0-2.0); EOSINOPHILS % (AUTO) 0 % (1.0-6.0); HEMATOCRIT 42.6 % (36-46); HEMOGLOBIN 13.7 g/dL (12.0-16.0); LYMPHOCYTES # (AUTO) 2.4 K/uL (1.0-4.8); LYMPHOCYTES % (AUTO) 27.6 % (22.0-44.0); MEAN CORPUSCULAR HEMOGLOBIN 28.6 pg (26.0-34.0); MEAN CORPUSCULAR HGB CONC 32.3 G/dL (31.0-37.0); MEAN CORPUSCULAR VOLUME 89 fL (80-100); MONOCYTES # (AUTO) 0.2 K/uL (0.1-1.0); MONOCYTES % (AUTO) 1.9 % (2.0-9.0); NEUTROPHILS # (AUTO) 6.1 K/uL (1.8-7.7); NEUTROPHILS % (AUTO) 69.7 % (40.0-70.0); PLATELET COUNT (AUTO) 367 K/uL (150-450); RED BLOOD CELL COUNT(AUTO) 4.81 MIL/uL (4.00-5.20); RED CELL DISTRIBUTION WIDTH 14.2 % (11.5-14.5); WHITE BLOOD COUNT (AUTO) 8.8 K/uL (4.5-11.0)
[2024-10-01 18:14] LABS: ANION GAP 21 mmol/L (8-16); CALCIUM, TOTAL 8.1 mg/dL (8.8-10.5); CARBON DIOXIDE 19 mmol/L (22-29); CHLORIDE 103 mmol/L (98-107); CREATININE 0.59 mg/dL (0.60-1.30); GLOMERULAR FILTR. RATE CALC > 60 mL/min (>60); GLUCOSE,RANDOM 80 mg/dL (70-110); POTASSIUM 3.3 mmol/L (3.5-5.1); SODIUM SERUM 143 mmol/L (136-145); UREA NITROGEN, BLOOD 7 mg/dL (7-18)
[2024-10-01 18:20] LABS: ALCOHOL, BLOOD (SERUM) 425 mg/dL (0-10)
[2024-10-01] MEDS: LORazepam 2 MG/ML VIAL IM ONE (18:45)
[2024-10-01] MEDS: ONDANSETRON HCL 4 MG/2 ML VIAL IVP ONE (20:19)
[2024-10-01] MEDS: SODIUM CHLORIDE 0.9% 1,000 ML IV ONE (20:20)
[2024-10-01] MEDS: PANTOPRAZOLE SODIUM 40 MG/VIAL IVP ONE (20:43)
[2024-10-01] MEDS: LORazepam 2 MG/ML VIAL IVP ONE (21:26)
[2024-10-02 00:26] VITALS: BP 143/113; PULSE 86; RESP 16; O2SAT 98
== END 2024-10-02 01:14 | disposition home or self-care (01) ==
LOC: EMS 16:55
DX: F10.229 Alcohol dependence with intoxication, unspecified (principal); F41.9 Anxiety disorder, unspecified; I10 Essential (primary) hypertension; F20.9 Schizophrenia, unspecified; Z88.5 Allergy status to narcotic agent; Z98.890 Other specified postprocedural states
CPT/HCPCS: 80048; 84703; 85025; 99284; 96361; 96374; 96375; 96372; G0480; J2060; J2405; C9113; J7030; J2470; 36415-L1; 36415-TC

== ENCOUNTER 2025-07-22 16:50 | Emergency (ER) | payer MEDICAID ==
[~2025-07-22] VITALS: Ht 162.6 cm; Wt 75.0 kg
[~2025-07-22 16:50] MED LIST changes: -ACET-3385 PO; +CARV12.530 PO; +FLUO-418 PO; -HYDR25TA PO; -IBUP-1492 PO; +MELA5TAB40 PO; +NALT50TA33 PO; +OLAN10TA26 PO; -ONDA-104 PO; -PROP20TA96 PO
[2025-07-22 17:02] VITALS: BP 133/98; PULSE 91; RESP 22; TEMP 98; O2SAT 100
== END 2025-07-22 18:05 | disposition left against medical advice (07) ==
LOC: EMS 16:50
DX: R07.89 Other chest pain (principal); Z53.21 Procedure and treatment not carried out due to patient leaving prior to being seen by health care provider
CPT/HCPCS: 93005

== ENCOUNTER 2025-10-02 08:09 | Emergency (ER) | payer MEDICAID ==
[~2025-10-02] VITALS: Ht 162.6 cm; Wt 68.2 kg
[2025-10-02 08:13] VITALS: BP 176/120; PULSE 109; RESP 18; TEMP 98.1; O2SAT 98
[2025-10-02] MEDS ORDERED: GABA-1181 PO (10:45)
== END 2025-10-02 11:01 | disposition home or self-care (01) ==
LOC: EMS 08:09
DX: F10.20 Alcohol dependence, uncomplicated (principal); F41.9 Anxiety disorder, unspecified; I10 Essential (primary) hypertension; F20.9 Schizophrenia, unspecified; F12.90 Cannabis use, unspecified, uncomplicated; Z88.5 Allergy status to narcotic agent; Z79.899 Other long term (current) drug therapy; Y09 Assault by unspecified means; Y93.89 Activity, other specified; Y92.89 Other specified places as the place of occurrence of the external cause; Y99.8 Other external cause status; Y90.9 Presence of alcohol in blood, level not specified
CPT/HCPCS: 99283; Z7502